=== PATIENT | male | born 1990 | race Hispanic/Latino ===

== ENCOUNTER → 2016-07-29 | Outpatient (REF) | payer OTHER | LOC: M SMT 10:45 | PROVIDERS: ATTEND Urology | DX: Z30.2 Encounter for sterilization (principal) ==

== ENCOUNTER 2017-03-23 03:48 | Emergency (ER) | payer OTHER ==
[~2017-03-23] VITALS: Ht 175.3 cm; Wt 108180.0 kg
--- NOTE | 2017-03-23 05:38 | REP ---
Clinical: Trauma. Rule out foreign body. Technique: AP, lateral, bilateral oblique views right hand . Findings: The osseous structures and joint spaces are intact and normal. There is no evidence for acute fracture or dislocation. Surrounding soft tissues are unremarkable. No subcutaneous emphysema or radiodense foreign body. Impression: No foreign body identified. No acute fracture or dislocation. Signed by Emmanuel Viera MD 03/23/2017 05:29 A
[2017-03-23] MEDS ORDERED: DERMABOND TOPICAL SKIN ADHESIVE TOP ONE (05:45)
[2017-03-23 06:20] VITALS: BP 137/91
== END 2017-03-23 06:39 | disposition home or self-care (01) ==
LOC: M ED 03:48
DX: S60.511A Abrasion of right hand, initial encounter (principal); W22.09XA Striking against other stationary object, initial encounter; Y92.019 Unspecified place in single-family (private) house as the place of occurrence of the external cause; Y93.89 Activity, other specified; Y99.8 Other external cause status; Z87.891 Personal history of nicotine dependence